=== PATIENT | female | born 1980 | race Caucasian/White ===

== ENCOUNTER 2017-11-17 10:04 | Emergency (ER) | payer MEDICAID ==
[2017-11-17 10:10] VITALS: RESP 18
--- NOTE | 2017-11-17 11:10 | EDPHY ---
H & P HPI/ROS: Chief complaint: Flu-like symptoms History of present illness: This is a 37-year-old female who presents to the emergency department for flu-like symptoms. She has been sick for the last 5 days. She reports intermittent fevers, runny nose, nasal congestion, sore throat, nonproductive cough, diffuse body aches and generalized malaise. She denies chest congestion, trouble breathing, rash, headache or neck pain. Smoking Status: Never smoked Physical Exam: General Appearance: Alert, nontoxic. Eyes: Pupils equal and round no pallor or injection. ENT, Mouth: Mucous membranes moist. Tympanic membranes, external auditory canals , external ears and surrounding soft tissue including over the mastoids are unremarkable. Nasopharynx is injected. Clear rhinorrhea. Oropharynx is injected. There is no edema. There is no exudate. There is no asymmetry. The uvula is midline. No elevation of the tongue. There is no hoarseness, no drooling, no trismus, no stridor. Respiratory: There are no retractions, lungs are clear to auscultation. Cardiovascular: Regular rate and rhythm. Neurological: Alert and oriented x4. Strength and sensation intact and symmetrical. No meningismus. Skin: Warm and dry, no rashes. Musculoskeletal: Neck is supple non tender. Extremities are symmetrical, full range of motion. Psychiatric: Patient is oriented X 3, there is no agitation. Constitutional: Initial Vital Signs Temperature (C) 36.8 C 11/17/17 10:07 Heart Rate 98 11/17/17 10:07 Respiratory Rate 18 11/17/17 10:07 Blood Pressure 123/76 H 11/17/17 10:07 O2 Sat (%) 98 11/17/17 10:07 O2 Delivery Mode Room Air Allergies/Adverse Reactions: No Known Allergies Allergy (Verified 11/17/17 10:06) Home Medications: Medication Instructions Recorded NK [No Known Home Meds] 11/17/17 MDM/Departure - MDM Imaging Results: Imaging Impressions Chest X-Ray 11/17/17 10:45 Impression: Query mild airways disease with no superimposed pneumonia identified. Imaging: I viewed and interpreted images myself ED Course/Re-evaluation: Patient seen under the supervision of my secondary supervising physician Dr. Fer Ortega. Patient presents to the emergency department for flu-like symptoms. She is nontoxic. Vital signs are stable. She is positive for flu A. Outside treatment time frame for Tamiflu. Chest x-ray negative. Believe she is appropriate for discharge home. Home care is discussed. She is to follow up with her primary care doctor for recheck. Return precautions are given. Patient voiced understanding and agreement with plan. Differential Diagnosis: Included but not limited to influenza, pneumonia, bronchitis - Depart Disposition: Home, Routine, Self-Care Clinical Impression: Viral syndrome Condition: Good Instructions: Viral Syndrome (ED) Additional Instructions: Follow-up with your primary care doctor next week for recheck If symptoms worsen or new symptoms develop return to the emergency room for recheck Referrals: Sai Willard MD [Primary Care Provider] - As per Instructions
[2017-11-17 11:17] VITALS: BP 101/79; PULSE 88; TEMP 99.1; O2SAT 99
== END 2017-11-17 11:25 | disposition home or self-care (01) ==
DX: B34.9 Viral infection, unspecified (principal)

== ENCOUNTER → 2018-07-10 | Outpatient (CLI) | payer MEDICAID | LOC: FIMAGING 15:49 | PROVIDERS: ATTEND Family Medicine | DX: N92.6 Irregular menstruation, unspecified (principal) ==

== ENCOUNTER → 2018-10-14 | Outpatient (CLI) | payer MEDICAID | LOC: FIMAGING 10:05 | PROVIDERS: ATTEND Advanced Practice Midwife | DX: N83.291 Other ovarian cyst, right side (principal) ==

== ENCOUNTER → 2018-11-01 | Outpatient (CLI) | payer MEDICAID | LOC: FIMAGING 07:33 | PROVIDERS: ATTEND Obstetrics & Gynecology Gynecology | DX: Z12.31 Encounter for screening mammogram for malignant neoplasm of breast (principal) ==

== ENCOUNTER → 2019-03-03 | Outpatient (CLI) | payer MEDICAID | LOC: FIMAGING 08:35 | PROVIDERS: ATTEND Advanced Practice Midwife | DX: N84.0 Polyp of corpus uteri (principal); N83.201 Unspecified ovarian cyst, right side ==